=== PATIENT | male | born 1950 | race Caucasian/White ===

== ENCOUNTER 2023-11-24 17:29 | Emergency (ER) | payer MEDICARE, OTHER ==
[2023-11-24 17:38] VITALS: BP 116/74; PULSE 87
[2023-11-24] MEDS ORDERED: Take Home: Amoxicillin 875 MG Tab, 2 Tab Pack PO ONE (17:45)
[2023-11-24] MEDS: Pseudoephedrine 30 MG Tab PO ONE ×2 (18:07)
[2023-11-24] MEDS: Take Home: Cefuroxime 250 MG Tab, 2 Tab Pack PO ONE (18:07)
[2023-11-24] MEDS: Cefuroxime 250 MG Tab PO ONE (18:08)
== END 2023-11-24 18:12 | disposition home or self-care (01) ==
LOC: VM.ED 17:29
DX: H66.002 Acute suppurative otitis media without spontaneous rupture of ear drum, left ear (principal); J06.9 Acute upper respiratory infection, unspecified; Z88.0 Allergy status to penicillin; Z88.8 Allergy status to other drugs, medicaments and biological substances; Z79.82 Long term (current) use of aspirin; Z79.899 Other long term (current) drug therapy
CPT/HCPCS: 99283; A9270-GY

== ENCOUNTER 2024-02-13 19:05 | Emergency (ER) | payer MEDICARE, OTHER ==
[2024-02-13 19:34] VITALS: BP 138/79; PULSE 64
[2024-02-13] MEDS ORDERED: Bupivacaine 0.5%/EPINEPHrine 1:200,000 30 ML SDV INJECT ONE (19:34)
[2024-02-13] MEDS ORDERED: Bupivacaine 0.25%/EPINEPHrine 1:200,000 30 ML SDV INJECT ONE (19:37)
[2024-02-13] MEDS: Lidocaine 1% with EPINEPHrine 1:100,000 20 ML MDV INFILT ONE (19:55)
== END 2024-02-13 20:28 | disposition home or self-care (01) ==
LOC: VM.ED 19:05
DX: S01.01XA Laceration without foreign body of scalp, initial encounter (principal); Z88.1 Allergy status to other antibiotic agents; Z79.82 Long term (current) use of aspirin; Z79.899 Other long term (current) drug therapy; W26.8XXA Contact with other sharp object(s), not elsewhere classified, initial encounter
CPT/HCPCS: 12002; 99282; J3490